=== PATIENT | male | born 1995 | race Asian ===

== ENCOUNTER 2022-05-28 13:07 | Outpatient (CLI) | payer BC | END 2022-05-28 13:08 | disposition home or self-care (01) | LOC: CSHMRI 13:07 | PROVIDERS: ATTEND Orthopaedic Surgery | DX: S99.912A Unspecified injury of left ankle, initial encounter (principal); S93.492A Sprain of other ligament of left ankle, initial encounter; S93.422A Sprain of deltoid ligament of left ankle, initial encounter; Q66.89 Other specified congenital deformities of feet ==